=== PATIENT | female | born 1950 | race Caucasian/White ===

== ENCOUNTER 2019-03-03 06:09 | Inpatient (IN) ==
[2019-03-02 13:30] LABS: Basophils # 0.1 10*3/uL (0.0-0.2); Basophils % 0.7 % (0.0-0.8); Eosinophils # 0.2 10*3/uL (0.0-0.87); Eosinophils % 2.3 % (0.00-10.9); Hematocrit 46.5 VOL% (35.7-47.0); Hemoglobin 14.5 GM/DL (12.0-16.0); Immature Granulocytes % 0.7 %; Immature Granulocytes Absolute 0.07 #; Lymphocytes # 2.7 10*3/uL (1.4-4.0); Mean Corpuscular HGB Conc 31.2 GM/DL (32-36); Mean Corpuscular Volume 92.3 FL (87-102); Monocytes % 4.6 % (1.7-12.7); Neutrophils % 64.7 % (38.7-73.9); Platelet Count 192 T/CUMM (130-400); Red Blood Count 5.04 MC/CUMM (3.8-5.5); Red Cell Distribution Width 14.9 % (9.3-17.3); White Blood Count 9.9 T/CUMM (4-12)
[2019-03-02 13:40] LABS: INR 0.9; PT Patient Result 9.9 SECS
[2019-03-02 13:57] LABS: Albumin 3.6 G/DL (3.4-5.0); Bilirubin,Total 0.4 MG/DL (0.2-1.0); Calcium 9.4 MG/DL (8.5-10.1); Osmolality,Calculated 269.1 MOS/KG (273-304); Total Protein 8.2 G/DL (6.4-8.3)
[~2019-03-03 06:09] MED LIST: ceFAZolin 1,000 MG in SYRINGE 1 EACH IV ONE
[2019-03-03] MEDS ORDERED: ceFAZolin 1,000 MG VIAL ONE (06:19)
[2019-03-03] MEDS ORDERED: TISSUE ADHESIVE 1 EACH APPLICATOR TOP ONE (06:25)
[2019-03-03] MEDS ORDERED: HEPARIN 5,000 UNIT/1 ML VIAL ONE (06:25)
[2019-03-03] MEDS ORDERED: VANCOMYCIN 500 MG VIAL ONE (06:25)
[2019-03-03] MEDS ORDERED: LIDOCAINE 2% TOP JELLY 20 ML VIAL INTRAURETH ONE (06:25)
[2019-03-03] MEDS ORDERED: THROMBIN TOPICAL (RECOMBINANT) 5,000 UNIT VIAL TOP ONE (06:25)
[2019-03-03] MEDS ORDERED: FAMOTIDINE 20 MG TABLET PO ONE (06:38)
[2019-03-03] MEDS ORDERED: DIAZEPAM 5 MG TABLET PO ONE (06:38)
[2019-03-03] MEDS ORDERED: FAMOTIDINE 20 MG TABLET ONE (06:50)
[2019-03-03] MEDS ORDERED: DIAZEPAM 5 MG TABLET ONE (06:50)
[2019-03-03] MEDS ORDERED: LACTATED RINGERS 1,000 ML IV SCH (07:00)
[2019-03-03 09:52] LABS: Apearance,Urine Clear (Clear); Urine Color Yellow (Yellow)
[2019-03-03 09:53] LABS: Bilirubin,Urine Negative (Negative); Blood, Urine Negative (Negative); Glucose,Urine (UA) Negative (Negative); Ketones,Urine Negative (Negative); Nitrite,Urine Negative (Negative); Protein,Urine 2+ MG/DL
[2019-03-03 09:54] LABS: RBC,Urine Rare /HPF (0-4); Squamous Epithelial Cell,Urine Rare /HPF (0-10); Urine Urobilinogen < 2.0 EU/DL (0.2-1.0); WBC,Urine Rare /HPF (0-6)
[2019-03-03] MEDS ORDERED: HYDROmorphone 2 MG/1 ML VIAL IV PRN (10:10)
[2019-03-03] MEDS ORDERED: ONDANSETRON 4 MG/2 ML VIAL IV PRN (10:10)
[2019-03-03] MEDS ORDERED: ACETAMINOPHEN 1,000 MG/100 ML VIAL IV ONE (10:12)
[2019-03-03] MEDS ORDERED: PROPOFOL 200 MG/20 ML VIAL IV ONE (10:50)
[2019-03-03] MEDS ORDERED: SEVOFLURANE 1 UNIT/15 MINUTE INH ONE (10:50)
[2019-03-03] MEDS ORDERED: fentaNYL 100 MCG/2 ML VIAL ONE (10:50)
[2019-03-03] MEDS ORDERED: ALBUMIN 5% 12.5 GM/250 ML VIAL IV ONE (10:50)
[2019-03-03] MEDS ORDERED: PHENYLEPHRINE 10 MG/1 ML VIAL IV ONE (10:51)
[2019-03-03] MEDS ORDERED: ONDANSETRON 4 MG/2 ML VIAL ONE (10:51)
[2019-03-03] MEDS ORDERED: ETOMIDATE 40 MG/20 ML VIAL IV ONE (10:51)
[2019-03-03] MEDS ORDERED: GLYCOPYRROLATE 0.4 MG/2 ML VIAL ONE (10:51)
[2019-03-03] MEDS ORDERED: MIDAZOLAM 2 MG/2 ML VIAL ONE (10:51)
[2019-03-03] MEDS ORDERED: LACTATED RINGERS 1,000 ML IV ONE (10:52)
[2019-03-03] MEDS ORDERED: SODIUM CHLORIDE 0.9% 250 ML IV ONE (10:52)
[2019-03-03] MEDS ORDERED: SODIUM CHLORIDE 0.9% 1,000 ML IV ONE (10:52)
[2019-03-03] MEDS ORDERED: NEOSTIGMINE 10 MG/10 ML VIAL ONE (10:52)
[2019-03-03] MEDS ORDERED: ROCURONIUM 100 MG/10 ML VIAL IV ONE (10:52)
[2019-03-03 11:07] LABS: Hematocrit 39.4 VOL% (35.7-47.0)
[2019-03-03 11:11] LABS: Hemoglobin 12.5 GM/DL (12.0-16.0)
[2019-03-03 11:43] LABS: Osmolality,Calculated 277.7 MOS/KG (273-304)
[2019-03-03] MEDS: DIVALPROEX 500 MG TABLET PO SCH ×2 (16:00→20:08)
[2019-03-03] MEDS: LORazepam 0.5 MG TABLET PO SCH (20:07)
[2019-03-03] MEDS: GABAPENTIN 600 MG TABLET PO SCH (20:08)
[2019-03-03] MEDS ORDERED: QUEtiapine 100 MG TABLET PO SCH (21:00)
[2019-03-04 04:50] LABS: Hematocrit 39.9 VOL% (35.7-47.0); Hemoglobin 12.5 GM/DL (12.0-16.0)
[2019-03-04 05:05] LABS: Calcium 9.2 MG/DL (8.5-10.1); Osmolality,Calculated 280.4 MOS/KG (273-304)
[2019-03-04] MEDS ORDERED: LEVOTHYROXINE 200 MCG TABLET PO SCH (07:00)
[2019-03-04] MEDS ORDERED: METOPROLOL SUCCINATE XL 50 MG TABLET PO SCH (09:00)
[2019-03-04] MEDS ORDERED: PANTOPRAZOLE 40 MG TABLET PO SCH (09:00)
[2019-03-04] MEDS: DIVALPROEX 500 MG TABLET PO SCH (09:24)
[2019-03-04] MEDS: GABAPENTIN 600 MG TABLET PO SCH (09:24)
[2019-03-04] MEDS: LORazepam 0.5 MG TABLET PO SCH (09:24)
[2019-03-04 12:27] VITALS: BP 152/72
== END 2019-03-04 16:15 | disposition home or self-care (01) | DRG 269 ==
LOC: N.SDSINP 06:09 → N.3E 11:44
PROVIDERS: ADMIT Surgery; ATTEND Surgery
PROC: IRERAAA (2019-03-03 07:05)

== ENCOUNTER 2022-06-11 06:48 | Inpatient (IN) ==
[2022-06-07 12:47] LABS: Basophils # 0.1 10*3/uL (0.0-0.2); Basophils % 0.8 % (0.0-0.8); Eosinophils # 0.2 10*3/uL (0.0-0.87); Eosinophils % 2.3 % (0.00-10.9); Hematocrit 47.3 VOL% (35.7-47.0); Hemoglobin 15.2 GM/DL (12.0-16.0); Immature Granulocytes % 0.3 %; Immature Granulocytes Absolute 0.02 #; Lymphocytes # 2.6 10*3/uL (1.4-4.0); Lymphocytes % 33.2 % (21.3-54.2); Mean Corpuscular HGB Conc 32.1 GM/DL (32-36); Mean Corpuscular Volume 89.6 FL (87-102); Mean Platelet Volume 11.2 FL (9.6-12.0); Monocytes # 0.5 10*3/uL (0.11-0.8); Monocytes % 6.8 % (1.7-12.7); Neutrophils % 56.6 % (38.7-73.9); Platelet Count 284 T/CUMM (130-400); Red Blood Count 5.28 MC/CUMM (3.8-5.5); Red Cell Distribution Width 13.9 % (9.3-17.3)
[2022-06-07 12:56] LABS: PT Patient Result 10.6 SECS (10.1-12.1)
[2022-06-07 13:08] LABS: Albumin 3.4 G/DL (3.4-5.0); Bilirubin,Total 0.5 MG/DL (0.20-1.00); Calcium 9.7 MG/DL (8.5-10.1); Osmolality,Calculated 280.7 MOS/KG (273-304); Potassium 4.9 MMOL/L (3.5-5.1); Total Protein 7.6 G/DL (6.4-8.2)
[2022-06-11] MEDS ORDERED: DIAZEPAM 5 MG TABLET PO ONE (07:09)
[2022-06-11] MEDS ORDERED: ALBUTEROL 2.5 MG/3 ML NEB RESP TX ONE (07:09)
[2022-06-11] MEDS ORDERED: FAMOTIDINE 20 MG TABLET PO ONE (07:09)
[2022-06-11] MEDS ORDERED: LACTATED RINGERS 1,000 ML IV SCH (07:30)
[2022-06-11] MEDS ORDERED: HEPARIN/NACL 0.9% 2 UNITS/ML 1,000 UNIT/500 ML BAG IV ONE (07:30)
[2022-06-11] MEDS ORDERED: LIDOCAINE 2% 5 ML VIAL ONE ×2 (07:32→08:53)
[2022-06-11] MEDS ORDERED: NITROGLYCERIN DRIP 50 MG/250 ML BOTTLE IV ONE (07:58)
[2022-06-11] MEDS ORDERED: PHENYLEPHRINE DRIP 20 MG/250 ML PREMIX IV ONE (07:58)
[2022-06-11] MEDS ORDERED: HEPARIN 10,000 UNIT/10 ML VIAL ONE (07:59)
[2022-06-11] MEDS ORDERED: fentaNYL 100 MCG/2 ML VIAL ONE ×2 (08:14→10:03)
[2022-06-11] MEDS ORDERED: propofoL 200 MG/20 ML VIAL IV ONE ×2 (08:53→10:25)
[2022-06-11] MEDS ORDERED: PHENYLEPHRINE 1 MG/10 ML SYRINGE IV ONE ×2 (08:53→11:13)
[2022-06-11] MEDS ORDERED: ROCURONIUM 50 MG/5 ML VIAL IV ONE (08:53)
[2022-06-11] MEDS ORDERED: SEVOFLURANE 1 UNIT/15 MINUTE INH ONE (08:55)
[2022-06-11] MEDS ORDERED: SUGAMMADEX 200 MG/2 ML VIAL IV ONE (08:56)
[2022-06-11] MEDS ORDERED: HEPARIN 5,000 UNIT/1 ML VIAL ONE (09:39)
[2022-06-11] MEDS ORDERED: MIDAZOLAM 2 MG/2 ML VIAL ONE (10:05)
[2022-06-11] MEDS ORDERED: ePHEDrine 50 MG/ML VIAL ONE (10:33)
[2022-06-11] MEDS ORDERED: GLYCOPYRROLATE 0.4 MG/2 ML VIAL ONE (10:41)
[2022-06-11] MEDS ORDERED: LACTATED RINGERS 1,000 ML IV ONE (11:00)
[2022-06-11] MEDS ORDERED: PROTAMINE SULFATE 50 MG/5 ML VIAL IV ONE (11:18)
[2022-06-11] MEDS ORDERED: HYDROmorphone 1 MG/1 ML SYRINGE ONE (11:39)
[2022-06-11] MEDS ORDERED: NALOXONE 0.4 MG/ML VIAL IV PRN (11:42)
[2022-06-11] MEDS ORDERED: ONDANSETRON 4 MG/2 ML VIAL IV PRN ×2 (11:42→12:14)
[2022-06-11] MEDS ORDERED: PROMETHAZINE 25 MG/1 ML VIAL IM PRN (11:42)
[2022-06-11] MEDS ORDERED: PHENYLEPHRINE DRIP 40 MG/250 ML PREMIX IV PRN (11:42)
[2022-06-11] MEDS ORDERED: DEXTROSE 10% 250 ML BAG IV PRN (11:42)
[2022-06-11] MEDS ORDERED: HYDROmorphone 1 MG/1 ML SYRINGE IV PRN (11:42)
[2022-06-11] MEDS ORDERED: oxyCODONE/ACETAMINOPHEN 5-325 MG TABLET PO PRN ×2 (11:42)
[2022-06-11] MEDS: HYDROmorphone 1 MG/1 ML SYRINGE IV PRN ×4 (12:18→19:24)
[2022-06-11] MEDS: LACTATED RINGERS 1,000 ML IV SCH ×2 (13:00→23:59)
[2022-06-11 13:05] VITALS: BP 140/68
[2022-06-11] MEDS: NITROPRUSSIDE 100 MG in DEXTROSE 5% 250 ML IV PRN (15:00)
[2022-06-11] MEDS: LORazepam 1 MG TABLET PO PRN (16:30)
[2022-06-11] MEDS ORDERED: NITROGLYCERIN DRIP 50 MG/250 ML BOTTLE IV PRN (18:39)
[2022-06-11] MEDS: INSULIN REGULAR 100 UNIT/ML SUBCUT SCH ×2 (18:58→20:38)
[2022-06-11] MEDS ORDERED: diphenhydrAMINE CAP 25 MG CAPSULE PO ONE (20:44)
[2022-06-12] MEDS: LORazepam 1 MG TABLET PO PRN (00:01)
[2022-06-12] MEDS: HYDROmorphone 1 MG/1 ML SYRINGE IV PRN (02:56)
[2022-06-12] MEDS ORDERED: NITROPRUSSIDE 50 MG/2 ML VIAL ONE (05:54)
[2022-06-12] MEDS: NITROPRUSSIDE 100 MG in DEXTROSE 5% 250 ML IV PRN (06:02)
[2022-06-12] MEDS: INSULIN REGULAR 100 UNIT/ML SUBCUT SCH (08:44)
[2022-06-12] MEDS: LACTATED RINGERS 1,000 ML IV SCH (08:44)
[2022-06-12] MEDS ORDERED: LEVOTHYROXINE 150 MCG TABLET PO SCH (09:00)
[2022-06-12] MEDS ORDERED: ASPIRIN EC 81 MG TABLET PO SCH (09:00)
[2022-06-12] MEDS ORDERED: CLOPIDOGREL 75 MG TABLET PO SCH (09:00)
[2022-06-12] MEDS ORDERED: LORazepam 1 MG TABLET PO SCH (09:00)
[2022-06-12] MEDS ORDERED: GABAPENTIN 600 MG TABLET PO SCH (09:00)
[2022-06-12] MEDS ORDERED: FLUoxetine 20 MG CAPSULE PO SCH (09:00)
[2022-06-12] MEDS ORDERED: METOPROLOL SUCCINATE XL 50 MG TABLET PO ONE (13:30)
[2022-06-12] MEDS ORDERED: QUEtiapine 100 MG TABLET PO SCH (21:00)
== END 2022-06-12 15:05 | disposition home or self-care (01) | DRG 39 ==
LOC: N.OR 06:48 → N.SDSINP 06:49 → EDSTATUS 08:30 → N.SDSINP 11:42 → N.ICU 12:54
PROVIDERS: ADMIT Surgery; ATTEND Surgery

== ENCOUNTER 2022-07-13 19:50 | Inpatient (IN) ==
[2022-07-13 20:18] LABS: Basophils # 0.1 10*3/uL (0.0-0.2); Basophils % 0.3 % (0.0-0.8); Eosinophils # 0.2 10*3/uL (0.0-0.87); Hematocrit 46.7 VOL% (35.7-47.0); Hemoglobin 15.1 GM/DL (12.0-16.0); Immature Granulocytes % 0.5 %; Immature Granulocytes Absolute 0.07 #; Lymphocytes % 13.7 % (21.3-54.2); Mean Corpuscular HGB Conc 32.3 GM/DL (32-36); Mean Corpuscular Volume 87.9 FL (87-102); Mean Platelet Volume 10.8 FL (9.6-12.0); Monocytes # 0.6 10*3/uL (0.11-0.8); Monocytes % 3.8 % (1.7-12.7); Neutrophils % 80.7 % (38.7-73.9); Platelet Count 290 T/CUMM (130-400); Red Blood Count 5.31 MC/CUMM (3.8-5.5); Red Cell Distribution Width 13.6 % (9.3-17.3); White Blood Count 14.7 T/CUMM (4-12)
[2022-07-13 20:29] LABS: INR 0.9; PT Patient Result 10.3 SECS (10.1-12.1); Partial Thromboplastin Time 28.2 SECS (23.7-32.9)
[2022-07-13] MEDS ORDERED: SODIUM CHLORIDE 0.9% 1,000 ML IV STA (20:32)
[2022-07-13] MEDS ORDERED: PANTOPRAZOLE 40 MG VIAL IV STA (20:33)
[2022-07-13] MEDS ORDERED: MORPHINE 2 MG/1 ML SYRINGE IV STA (20:33)
[2022-07-13] MEDS ORDERED: ONDANSETRON 4 MG/2 ML VIAL IV STA (20:33)
[2022-07-13 20:34] LABS: Albumin 2.8 G/DL (3.4-5.0); Bilirubin,Total 0.6 MG/DL (0.20-1.00); Calcium 9.6 MG/DL (8.5-10.1); Osmolality,Calculated 277.7 MOS/KG (273-304); Total Protein 6.9 G/DL (6.4-8.2)
[2022-07-13] MEDS ORDERED: ACETAMINOPHEN 325 MG TABLET PO PRN (21:18)
[2022-07-13] MEDS ORDERED: ONDANSETRON 4 MG/2 ML VIAL IV PRN (21:18)
[2022-07-14] MEDS: MORPHINE 2 MG/1 ML SYRINGE IV PRN ×4 (01:15→20:19)
[2022-07-14] MEDS: PIPERACILLIN/TAZOBACTAM 3,375 MG in SODIUM CHLORIDE 0.9% 100 ML IV SCH ×3 (02:06→21:30)
[2022-07-14 05:18] LABS: Basophils % 0.3 % (0.0-0.8); Eosinophils % 0.2 % (0.00-10.9); Hematocrit 39.6 VOL% (35.7-47.0); Hemoglobin 12.5 GM/DL (12.0-16.0); Immature Granulocytes % 0.7 %; Immature Granulocytes Absolute 0.11 #; Lymphocytes % 12.7 % (21.3-54.2); Mean Corpuscular HGB Conc 31.6 GM/DL (32-36); Mean Corpuscular Volume 90.8 FL (87-102); Mean Platelet Volume 11.4 FL (9.6-12.0); Monocytes # 0.9 10*3/uL (0.11-0.8); Neutrophils % 80.1 % (38.7-73.9); Platelet Count 225 T/CUMM (130-400); Red Blood Count 4.36 MC/CUMM (3.8-5.5); Red Cell Distribution Width 13.6 % (9.3-17.3); White Blood Count 15.8 T/CUMM (4-12)
[2022-07-14 05:29] LABS: Potassium 4.4 MMOL/L (3.5-5.1)
[2022-07-14] MEDS: DEXTROSE 5% NACL 0.45% 1,000 ML IV SCH ×3 (06:39→13:35)
[2022-07-14] MEDS: LEVOTHYROXINE 150 MCG TABLET PO SCH (07:15)
[2022-07-14] MEDS: ASPIRIN EC 81 MG TABLET PO SCH (08:52)
[2022-07-14] MEDS: GABAPENTIN 600 MG TABLET PO SCH (08:52)
[2022-07-14] MEDS: METOPROLOL SUCCINATE XL 50 MG TABLET PO SCH (08:53)
[2022-07-14] MEDS: PANTOPRAZOLE 40 MG TABLET PO SCH (08:53)
[2022-07-14] MEDS: FLUoxetine 20 MG CAPSULE PO SCH (08:53)
[2022-07-14] MEDS ORDERED: PROMETHAZINE INJ 25 MG in SODIUM CHLORIDE 0.9% 50 ML IV PRN (09:46)
[2022-07-14] MEDS ORDERED: ONDANSETRON 4 MG/2 ML VIAL IV PRN (09:46)
[2022-07-14] MEDS ORDERED: diphenhydrAMINE 50 MG/1 ML VIAL IV PRN (09:46)
[2022-07-14] MEDS ORDERED: MEPERIDINE 50 MG/1 ML VIAL IV PRN (09:46)
[2022-07-14] MEDS ORDERED: LIDOCAINE 2%/EPI 20 ML VIAL ONE (10:31)
[2022-07-14] MEDS ORDERED: TISSUE ADHESIVE 1 EACH APPLICATOR TOP ONE (10:31)
[2022-07-14] MEDS ORDERED: BUPIVACAINE MPF 0.25% 10 ML VIAL ONE (10:31)
[2022-07-14] MEDS ORDERED: DEXAMETHASONE 4 MG/1 ML VIAL ONE (11:36)
[2022-07-14] MEDS ORDERED: ONDANSETRON 4 MG/2 ML VIAL ONE (11:36)
[2022-07-14] MEDS ORDERED: propofoL 200 MG/20 ML VIAL IV ONE (11:36)
[2022-07-14] MEDS ORDERED: LIDOCAINE 2% 5 ML VIAL ONE (11:36)
[2022-07-14] MEDS ORDERED: SEVOFLURANE 1 UNIT/15 MINUTE INH ONE ×3 (11:36→12:31)
[2022-07-14] MEDS ORDERED: ACETAMINOPHEN INJ 1,000 MG/100 ML VIAL IV ONE (11:36)
[2022-07-14] MEDS ORDERED: ROCURONIUM 50 MG/5 ML VIAL IV ONE (11:36)
[2022-07-14] MEDS ORDERED: fentaNYL 100 MCG/2 ML VIAL ONE (11:37)
[2022-07-14] MEDS ORDERED: SUCCINYLCHOLINE 200 MG/10 ML VIAL ONE (12:02)
[2022-07-14] MEDS ORDERED: LACTATED RINGERS 1,000 ML IV ONE (12:26)
[2022-07-14] MEDS ORDERED: PHENYLEPHRINE 1 MG/10 ML SYRINGE IV ONE (12:31)
[2022-07-14] MEDS ORDERED: NEOSTIGMINE 10 MG/10 ML VIAL ONE (12:31)
[2022-07-14] MEDS ORDERED: GLYCOPYRROLATE 0.4 MG/2 ML VIAL ONE (12:31)
[2022-07-14] MEDS ORDERED: ALBUTEROL/IPRATROPIUM 3 ML NEB RESP TX ONE ×2 (12:51→13:10)
[2022-07-14] MEDS ORDERED: PROMETHAZINE 25 MG/1 ML VIAL ONE (12:51)
[2022-07-14] MEDS: HYDROmorphone 1 MG/1 ML SYRINGE IV PRN ×4 (12:55→13:10)
[2022-07-14] MEDS: ENOXAPARIN 40 MG/0.4 ML SYRINGE SUBCUT SCH (15:20)
[2022-07-15] MEDS: MORPHINE 2 MG/1 ML SYRINGE IV PRN (03:37)
[2022-07-15] MEDS: DEXTROSE 5% NACL 0.45% 1,000 ML IV SCH ×3 (03:38→11:30)
[2022-07-15 05:21] LABS: Basophils % 0.1 % (0.0-0.8); Eosinophils % 0.1 % (0.00-10.9); Hematocrit 36.4 VOL% (35.7-47.0); Hemoglobin 11.1 GM/DL (12.0-16.0); Immature Granulocytes % 0.5 %; Immature Granulocytes Absolute 0.04 #; Lymphocytes # 0.8 10*3/uL (1.4-4.0); Lymphocytes % 9.5 % (21.3-54.2); Mean Corpuscular HGB Conc 30.5 GM/DL (32-36); Mean Corpuscular Volume 91.5 FL (87-102); Mean Platelet Volume 11.4 FL (9.6-12.0); Monocytes # 0.6 10*3/uL (0.11-0.8); Monocytes % 6.6 % (1.7-12.7); Neutrophils % 83.2 % (38.7-73.9); Platelet Count 193 T/CUMM (130-400); Red Blood Count 3.98 MC/CUMM (3.8-5.5); Red Cell Distribution Width 13.5 % (9.3-17.3); White Blood Count 8.3 T/CUMM (4-12)
[2022-07-15] MEDS: LEVOTHYROXINE 150 MCG TABLET PO SCH (05:41)
[2022-07-15] MEDS: PIPERACILLIN/TAZOBACTAM 3,375 MG in SODIUM CHLORIDE 0.9% 100 ML IV SCH ×2 (05:42→13:00)
[2022-07-15 05:48] LABS: Alanine Aminotransferase < 9 U/L (13-56); Albumin 2.1 G/DL (3.4-5.0); Alkaline Phosphatase 99 U/L (45-117); Aspartate Amino Transferase 8 U/L (0-37); Bilirubin,Total < 0.39 MG/DL (0.20-1.00); Blood Urea Nitrogen 15 MG/DL (7-18); Calcium 8.9 MG/DL (8.5-10.1); Carbon Dioxide 26 MMOL/L (21-32); Chloride 106 MMOL/L (98-107); Glucose 127 MG/DL (74-106); Osmolality,Calculated 277.7 MOS/KG (273-304); Potassium 3.8 MMOL/L (3.5-5.1); Sodium 138 MMOL/L (136-145); Thyroid Stimulating Hormone 0.009 uIU/ml (0.358-3.74); Total Protein 6.3 G/DL (6.4-8.2)
[2022-07-15] MEDS ORDERED: ALBUTEROL/IPRATROPIUM 3 ML NEB RESP TX PRN (08:23)
[2022-07-15] MEDS: METOPROLOL SUCCINATE XL 50 MG TABLET PO SCH (08:27)
[2022-07-15] MEDS: FLUoxetine 20 MG CAPSULE PO SCH (08:27)
[2022-07-15] MEDS: PANTOPRAZOLE 40 MG TABLET PO SCH (08:27)
[2022-07-15] MEDS: ASPIRIN EC 81 MG TABLET PO SCH (08:27)
[2022-07-15] MEDS: GABAPENTIN 600 MG TABLET PO SCH (08:27)
[2022-07-15] MEDS: ENOXAPARIN 40 MG/0.4 ML SYRINGE SUBCUT SCH (15:58)
[2022-07-16] MEDS: MORPHINE 2 MG/1 ML SYRINGE IV PRN ×2 (05:54→21:56)
[2022-07-16] MEDS ORDERED: ASPIRIN CHEW 81 MG TABLET PO ONE (05:57)
[2022-07-16] MEDS ORDERED: NITROGLYCERIN SL 0.4 MG TABLET SL PRN (05:57)
[2022-07-16] MEDS: PIPERACILLIN/TAZOBACTAM 3,375 MG in SODIUM CHLORIDE 0.9% 100 ML IV SCH ×4 (06:10→21:57)
[2022-07-16] MEDS: DEXTROSE 5% NACL 0.45% 1,000 ML IV SCH ×4 (06:10→21:54)
[2022-07-16 06:13] LABS: Basophils % 0.3 % (0.0-0.8); Eosinophils # 0.2 10*3/uL (0.0-0.87); Eosinophils % 2.9 % (0.00-10.9); Hematocrit 36.9 VOL% (35.7-47.0); Hemoglobin 11.3 GM/DL (12.0-16.0); Immature Granulocytes % 0.5 %; Immature Granulocytes Absolute 0.03 #; Lymphocytes # 1.8 10*3/uL (1.4-4.0); Mean Corpuscular HGB Conc 30.6 GM/DL (32-36); Mean Corpuscular Volume 91.3 FL (87-102); Mean Platelet Volume 11.2 FL (9.6-12.0); Monocytes # 0.5 10*3/uL (0.11-0.8); Monocytes % 8.3 % (1.7-12.7); Platelet Count 205 T/CUMM (130-400); Red Blood Count 4.04 MC/CUMM (3.8-5.5); Red Cell Distribution Width 13.7 % (9.3-17.3); White Blood Count 6.2 T/CUMM (4-12)
[2022-07-16 06:32] LABS: Alanine Aminotransferase 14 U/L (13-56); Alkaline Phosphatase 122 U/L (45-117); Aspartate Amino Transferase 15 U/L (0-37); Bilirubin,Total < 0.39 MG/DL (0.20-1.00); Blood Urea Nitrogen 13 MG/DL (7-18); Calcium 9.2 MG/DL (8.5-10.1); Carbon Dioxide 28 MMOL/L (21-32); Chloride 107 MMOL/L (98-107); Glucose 95 MG/DL (74-106); Osmolality,Calculated 278.4 MOS/KG (273-304); Potassium 3.6 MMOL/L (3.5-5.1); Sodium 140 MMOL/L (136-145); Total Protein 6.4 G/DL (6.4-8.2)
[2022-07-16] MEDS ORDERED: POTASSIUM CHLORIDE 20 MEQ TABLET PO ONE (07:58)
[2022-07-16] MEDS: PANTOPRAZOLE 40 MG TABLET PO SCH (09:02)
[2022-07-16] MEDS: METOPROLOL SUCCINATE XL 50 MG TABLET PO SCH (09:02)
[2022-07-16] MEDS: FLUoxetine 20 MG CAPSULE PO SCH (09:02)
[2022-07-16] MEDS: ASPIRIN EC 81 MG TABLET PO SCH (09:02)
[2022-07-16] MEDS: GABAPENTIN 600 MG TABLET PO SCH (09:02)
[2022-07-16] MEDS: AZITHROMYCIN INJ 500 MG in SODIUM CHLORIDE 0.9% 250 ML IV SCH (13:27)
[2022-07-16] MEDS: ENOXAPARIN 40 MG/0.4 ML SYRINGE SUBCUT SCH (15:43)
[2022-07-17] MEDS: MORPHINE 2 MG/1 ML SYRINGE IV PRN ×2 (04:03→21:32)
[2022-07-17] MEDS: PIPERACILLIN/TAZOBACTAM 3,375 MG in SODIUM CHLORIDE 0.9% 100 ML IV SCH ×3 (06:14→21:28)
[2022-07-17] MEDS: DEXTROSE 5% NACL 0.45% 1,000 ML IV SCH ×3 (06:14→21:27)
[2022-07-17 06:35] LABS: Basophils % 0.5 % (0.0-0.8); Eosinophils # 0.2 10*3/uL (0.0-0.87); Eosinophils % 2.5 % (0.00-10.9); Hematocrit 39.1 VOL% (35.7-47.0); Hemoglobin 12.1 GM/DL (12.0-16.0); Immature Granulocytes % 0.4 %; Immature Granulocytes Absolute 0.03 #; Lymphocytes # 1.4 10*3/uL (1.4-4.0); Lymphocytes % 18.8 % (21.3-54.2); Mean Corpuscular HGB Conc 30.9 GM/DL (32-36); Mean Corpuscular Volume 90.3 FL (87-102); Mean Platelet Volume 11.2 FL (9.6-12.0); Monocytes # 0.6 10*3/uL (0.11-0.8); Monocytes % 7.9 % (1.7-12.7); Neutrophils % 69.9 % (38.7-73.9); Platelet Count 257 T/CUMM (130-400); Red Blood Count 4.33 MC/CUMM (3.8-5.5); Red Cell Distribution Width 13.7 % (9.3-17.3); White Blood Count 7.6 T/CUMM (4-12)
[2022-07-17 07:00] LABS: Calcium 9.4 MG/DL (8.5-10.1)
[2022-07-17] MEDS: ASPIRIN EC 81 MG TABLET PO SCH (08:26)
[2022-07-17] MEDS: METOPROLOL SUCCINATE XL 50 MG TABLET PO SCH (08:26)
[2022-07-17] MEDS: GABAPENTIN 600 MG TABLET PO SCH (08:27)
[2022-07-17] MEDS: PANTOPRAZOLE 40 MG TABLET PO SCH (08:27)
[2022-07-17] MEDS: FLUoxetine 20 MG CAPSULE PO SCH (08:27)
[2022-07-17] MEDS: AZITHROMYCIN INJ 500 MG in SODIUM CHLORIDE 0.9% 250 ML IV SCH (13:19)
[2022-07-17] MEDS: ENOXAPARIN 40 MG/0.4 ML SYRINGE SUBCUT SCH (17:00)
[2022-07-18 05:12] LABS: Basophils % 0.6 % (0.0-0.8); Eosinophils # 0.2 10*3/uL (0.0-0.87); Hematocrit 37.4 VOL% (35.7-47.0); Hemoglobin 11.7 GM/DL (12.0-16.0); Immature Granulocytes % 0.4 %; Immature Granulocytes Absolute 0.03 #; Lymphocytes # 1.4 10*3/uL (1.4-4.0); Lymphocytes % 19.1 % (21.3-54.2); Mean Corpuscular HGB Conc 31.3 GM/DL (32-36); Mean Corpuscular Volume 88.6 FL (87-102); Mean Platelet Volume 11.2 FL (9.6-12.0); Monocytes # 0.6 10*3/uL (0.11-0.8); Monocytes % 8.6 % (1.7-12.7); Neutrophils % 68.3 % (38.7-73.9); Platelet Count 248 T/CUMM (130-400); Red Blood Count 4.22 MC/CUMM (3.8-5.5); Red Cell Distribution Width 13.2 % (9.3-17.3); White Blood Count 7.1 T/CUMM (4-12)
[2022-07-18] MEDS: DEXTROSE 5% NACL 0.45% 1,000 ML IV SCH (05:36)
[2022-07-18] MEDS: PIPERACILLIN/TAZOBACTAM 3,375 MG in SODIUM CHLORIDE 0.9% 100 ML IV SCH ×3 (05:37→21:51)
[2022-07-18 05:40] LABS: Calcium 9.1 MG/DL (8.5-10.1); Potassium 3.2 MMOL/L (3.5-5.1)
[2022-07-18] MEDS: MORPHINE 2 MG/1 ML SYRINGE IV PRN ×2 (05:44→20:42)
[2022-07-18] MEDS ORDERED: MAGNESIUM SULF RIDER 2 GM/50 ML PREMIX IV ONE (07:51)
[2022-07-18] MEDS: ASPIRIN EC 81 MG TABLET PO SCH (09:18)
[2022-07-18] MEDS: PANTOPRAZOLE 40 MG TABLET PO SCH (09:19)
[2022-07-18] MEDS: GABAPENTIN 600 MG TABLET PO SCH (09:19)
[2022-07-18] MEDS: FLUoxetine 20 MG CAPSULE PO SCH (09:20)
[2022-07-18] MEDS: METOPROLOL SUCCINATE XL 50 MG TABLET PO SCH (09:24)
[2022-07-18] MEDS: POTASSIUM CHLORIDE 20 MEQ TABLET PO SCH ×2 (11:03→13:36)
[2022-07-18] MEDS: AZITHROMYCIN INJ 500 MG in SODIUM CHLORIDE 0.9% 250 ML IV SCH (13:35)
[2022-07-18] MEDS: ENOXAPARIN 40 MG/0.4 ML SYRINGE SUBCUT SCH (16:07)
[2022-07-19] MEDS: DEXTROSE 5% NACL 0.45% 1,000 ML IV SCH ×2 (03:05→12:27)
[2022-07-19] MEDS: PIPERACILLIN/TAZOBACTAM 3,375 MG in SODIUM CHLORIDE 0.9% 100 ML IV SCH (06:18)
[2022-07-19 07:30] LABS: Basophils % 0.5 % (0.0-0.8); Eosinophils # 0.2 10*3/uL (0.0-0.87); Hemoglobin 12.8 GM/DL (12.0-16.0); Immature Granulocytes % 0.8 %; Immature Granulocytes Absolute 0.06 #; Lymphocytes # 1.9 10*3/uL (1.4-4.0); Lymphocytes % 24.3 % (21.3-54.2); Mean Corpuscular Volume 87.1 FL (87-102); Monocytes # 0.6 10*3/uL (0.11-0.8); Monocytes % 7.5 % (1.7-12.7); Neutrophils % 63.9 % (38.7-73.9); Platelet Count 309 T/CUMM (130-400); Red Blood Count 4.59 MC/CUMM (3.8-5.5); Red Cell Distribution Width 13.3 % (9.3-17.3); White Blood Count 7.9 T/CUMM (4-12)
[2022-07-19 07:54] LABS: Calcium 9.2 MG/DL (8.5-10.1); Osmolality,Calculated 269.1 MOS/KG (273-304); Potassium 3.7 MMOL/L (3.5-5.1)
[2022-07-19] MEDS: PANTOPRAZOLE 40 MG TABLET PO SCH (09:27)
[2022-07-19] MEDS: METOPROLOL SUCCINATE XL 50 MG TABLET PO SCH (09:27)
[2022-07-19] MEDS: FLUoxetine 20 MG CAPSULE PO SCH (09:27)
[2022-07-19] MEDS: ASPIRIN EC 81 MG TABLET PO SCH (09:27)
[2022-07-19] MEDS: GABAPENTIN 600 MG TABLET PO SCH (09:27)
[2022-07-19 11:58] VITALS: BP 133/76
== END 2022-07-19 13:00 | disposition home health service (06) | DRG 340 ==
LOC: EDBD → EDUNIT# → N.ED 19:50 → N.EDINP 21:18 → SUATTDRO 21:18 → N.3E 22:15
PROVIDERS: ADMIT Surgery; ATTEND Surgery